=== PATIENT | male | born 1960 | race African-American/Black ===

== ENCOUNTER 2017-01-08 09:03 | Emergency (ER) | payer MEDICARE, OTHER ==
[~2017-01-08] VITALS: Ht 167.6 cm; Wt 74.8 kg
[2017-01-08 09:18] VITALS: BP 149/87
[2017-01-08] MEDS ORDERED: MORPHINE SULFATE 10 MG/ML VIAL. IM ONE (09:30)
[2017-01-08] MEDS ORDERED: OXYC5CAP PO (09:31)
--- NOTE | 2017-01-08 09:31 | PHYS DOC ---
Past Medical History Past Medical History: COPD, Glaucoma, Other Additional Past Medical Histor: "LIVER PROBLEMS" Past Surgical History: Other Additional Past Surgical Histo: RIGHT THUMB Alcohol Use: None Drug Use: None Adult General Chief Complaint Chief Complaint: LOWER BACK PAIN OR INJURY HPI HPI Patient is a 56 year old male who presents with chronic back & shoulder pain. 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 States he also has chronic right shoulder pain. His PCP is Dr. Armijo, has had workup already including MRI, & has been referred to orthopedic surgery for further evaluation. He denies any new injury. Denies fevers/chills, abdominal pain, bowel/bladder incontinence/retention, saddle anesthesia, lower extremity numbness/weakness, chest pain, shortness of breath. He has been taking tramadol but pain remains severe. Review of Systems Review of Systems Constitutional: Denies fever or chills HENT: Denies nasal congestion or sore throat Respiratory: Denies cough or shortness of breath Cardiovascular: Denies chest pain or edema GI: Denies abdominal pain, nausea, vomiting : Denies dysuria or hematuria Musculoskeletal: Reports back & shoulder pain. Integument: Denies rash Neurologic: Denies headache, focal weakness or sensory changes Current Medications Current Medications Current Medications Medications (Trade) Dose Ordered Sig/Katie Start Time Stop Time Status Last Admin Dose Admin Morphine Sulfate 5 mg 1X ONCE 01/08/17 09:30 01/08/17 09:31 DC 01/08/17 09:29 5 MG Allergies Allergies Allergies Coded Allergies Type Severity Reaction Last Updated Verified ibuprofen Allergy Intermediate HIVES 01/08/17 Yes Physical Exam Physical Exam Constitutional: Well developed, well nourished, no acute distress, non-toxic appearance. HENT: Normocephalic, atraumatic, bilateral external ears normal, oropharynx moist, nose normal. Eyes: conjunctiva normal, no discharge. Neck: supple, no stridor. Cardiovascular: RRR, no murmurs, no edema. heart rate 80s during my exam. Lungs & Thorax: LCTAB, no wheezing, no respiratory distress. Abdomen: soft, nontender, nondistended. no pulsatile abdominal mass. Skin: Warm, dry, no erythema, no rash. Back: generalized lumbar spinal & paraspinous tenderness without focal tenderness or step offs. Extremities: right shoulder diffuse mild pain with palpation, no swelling/ deformity, limited ROM with abduction, forward flexion, internal rotation, radial pulse 2+, radial/median/ulnar nerve sensory & motor function intact, axillary nerve sensation intact. symmetric strength/sensation to lower extremities. Neurologic: Alert and oriented X 3, no focal deficits noted. Psychologic: Affect normal, judgement normal, mood normal. Current Patient Data Vital Signs Vital Signs Date Time Temp Pulse Resp B/P (MAP) Pulse Ox O2 Delivery O2 Flow Rate FiO2 01/08/17 09:29 18 99 01/08/17 09:18 98.1 102 Room Air 98.1 EKG EKG [] Radiology/Procedures Radiology/Procedures [] Course & Med Decision Making Course & Med Decision Making Pertinent Labs and Imaging studies reviewed. (See chart for details) The patient presents with exacerbation of chronic shoulder and back pain. no concerning new symptoms or findings on exam. Initially slightly tachycardic, improving to 80s at time of my exam. He is not driving today. Gave IM morphine. Provided 10 tablets of oxycodone (reports liver problems, unable to take acetaminophen) as well as Flexeril at time of discharge. No drinking alcohol or driving while taking these medications. These medications will not last until his scheduled orthopedic appointment in late January. He needs to follow up with primary care physician for ongoing management of pain. Return to the emergency department for high fever, severe chest pain or abdominal pain, symptoms of cauda equina syndrome, any otherwise worsening condition. Discharged home in stable condition. [] Dragon Disclaimer Dragon Disclaimer This electronic medical record was generated, in whole or in part, using a voice recognition dictation system. Departure Departure Impression: Primary Impression: Chronic lower back pain Disposition: 01 HOME, SELF-CARE Condition: STABLE Patient Instructions: Chronic Back Pain Additional Instructions: You were seen in the emergency department today for back pain. Please try to do stretches, stay active, apply heating pad, continue medications prescribed by your doctor, take oxycodone for severe breakthrough pain. This medication will only last a few days so please follow up with Dr. Armijo to discuss management of chronic pain. Come back for loss of control of bowels or bladder , groin numbness, numbness or weakness in arms or legs, chest pain, shortness of breath, otherwise worsening condition. Scripts Cyclobenzaprine Hcl (CYCLOBENZAPRINE HCL) 5 Mg Tablet 1 TAB PO TID Y for MUSCLE SPASMS, #10 TAB Prov: TESHA MILLER MD 01/08/17 Oxycodone Hcl (OXYCODONE HCL) 5 Mg Capsule 1 CAP PO Q6HRS Y for SEVERE PAIN, #10 CAP Prov: TESHA MILLER MD 01/08/17 TESHA MILLER MD Jan 08, 2017 09:31
[2017-01-08] MEDS ORDERED: CYCL5TAB PO (09:32)
== END 2017-01-08 09:42 | disposition home or self-care (01) ==
LOC: ER 09:03
DX: G89.29 Other chronic pain (principal); M54.5 Low back pain; M25.511 Pain in right shoulder; H40.9 Unspecified glaucoma; J44.9 Chronic obstructive pulmonary disease, unspecified; Z88.6 Allergy status to analgesic agent
CPT/HCPCS: 96372; 99283; J2270

== ENCOUNTER → 2017-03-11 | Outpatient (CLI) | payer MEDICARE, OTHER ==
[~2017-03-11] MED LIST: CYCL5TAB PO; OXYC5CAP PO
--- NOTE | 2017-03-11 12:22 | CARD ---
APPROVED REPORT EXAM: Two-dimensional and M-mode echocardiogram with Doppler and color Doppler. Other Information Quality : GoodHR: 60bpm Rhythm : NSR INDICATION Hypertensive heart disease RISK FACTORS Hypertension Smoking 2D DIMENSIONS RVDd3.3 (2.9-3.5cm)Left Atrium(2D)3.6 (1.6-4.0cm) IVSd1.0 (0.7-1.1cm)Aortic Root(2D)3.3 (2.0-3.7cm) LVDd5.6 (3.9-5.9cm)LVOT Diameter2.5 (1.8-2.4cm) PWd1.0 (0.7-1.1cm)LVDs3.5 (2.5-4.0cm) FS (%) 37.1 %SV100.7 ml LVEF(%)66.5 (>50%) Aortic Valve AoV Peak Axel.129.3cm/sAoV VTI24.1cm AO Peak GR.6.7mmHgLVOT Peak Axel.99.1cm/s AO Mean GR.4mmHgAVA (VMAX)3.90cm2 Mitral Valve MV E Sehkglwi65.5cm/sMV E Peak Gr.2mmHg MV DECEL [id number] A Nlzaqmje42.5cm/s MV E Mean Gr.1mmHgE/A Ratio0.7 MV A [id number] Pulmonary Valve PV Peak Jgkqbrnf99.2cm/s Tricuspid Valve TR P. Leowwnvh533bw/sTR Peak Gr.14mmHg Pulmonary Vein S1 Julhbtcg34.5cm/sD2 Qykttpbf07.4cm/s PVa [id number] LEFT VENTRICLE The left ventricle is normal size. There is borderline to mild concentric left ventricular hypertroph y. The left ventricular systolic function is normal and the ejection fraction is within normal range. The Ejection Fraction is 60-65%. There is normal LV segmental wall motion. Transmitral Doppler flow pattern is Grade I-abnormal relaxation pattern. RIGHT VENTRICLE The right ventricle is normal size. There is normal right ventricular wall thickness. The right ventr icular systolic function is normal. ATRIA The left atrium size is normal. The right atrium size is normal. The interatrial septum is intact wit h no evidence for an atrial septal defect or patent foramen ovale as noted on 2-D or Doppler imaging. AORTIC VALVE The aortic valve is mildly thickened. The aortic valve is trileaflet. Doppler and Color Flow revealed no significant aortic regurgitation. There is no significant aortic valvular stenosis. MITRAL VALVE The mitral valve leaflets are mildly thickened. There is no evidence of mitral valve prolapse. There is no mitral valve stenosis. Doppler and Color Flow revealed trace mitral regurgitation. TRICUSPID VALVE Doppler and Color Flow revealed trace tricuspid regurgitation. The pulmonary artery systolic pressure is estimated at 17 mmHg. PULMONIC VALVE The pulmonic valve is not well visualized but appears to open adequately. Doppler and Color Flow reve aled no pulmonic valvular regurgitation. There is no pulmonic valvular stenosis by spectral Doppler. GREAT VESSELS The aortic root is normal in size. The ascending aorta is normal in size. The pulmonary artery is nor mal. The IVC is normal in size and collapses >50% with inspiration. PERICARDIAL EFFUSION There is no evidence of significant pericardial effusion. Critical Notification Critical Value: No <Conclusion> The left ventricle is normal size. The left ventricular systolic function is normal and the ejection fraction is within normal range. The Ejection Fraction is 60-65%. There is borderline to mild concentric left ventricular hypertrophy. There is no significant aortic valvular stenosis. Doppler and Color Flow revealed no significant aortic regurgitation. Doppler and Color Flow revealed trace mitral regurgitation. Doppler and Color Flow revealed trace tricuspid regurgitation. The pulmonary artery systolic pressure is estimated at 17 mmHg.
== END | disposition home or self-care (01) ==
LOC: ECHO 09:00
PROVIDERS: ATTEND Internal Medicine Cardiovascular Disease
DX: I11.9 Hypertensive heart disease without heart failure (principal)
CPT/HCPCS: 93306